=== PATIENT | female | born 1975 | race Caucasian/White ===

== ENCOUNTER 2018-08-29 15:24 | Observation (INO) ==
--- NOTE | 2018-08-29 15:42 | Emergency Department Note ---
Disposition Clinical Impression: Dehydration Diarrhea Qualifiers: Diarrhea type: unspecified type Qualified Code(s): R19.7 - Diarrhea, unspecified Vomiting Qualifiers: Vomiting type: unspecified Vomiting Intractability: intractable Nausea presence: with nausea Qualified Code(s): R11.2 - Nausea with vomiting, unspecified Disposition: Admitted As Inpatient Condition: Good Referrals: NONE,PCP [Primary Care Provider] - Forms: ED Satisfaction Letter, Work/School Release Time of Disposition: 20:38 General Adult HPI - General Chief complaint: ED General Medical Stated complaint: ABD Pain,Vomiting Time Seen by Provider: 08/29/18 15:29 Source: patient, family Limitations: no limitations Nursing Notes Reviewed: Yes Vital Signs Reviewed: Yes - History of Present Illness HPI Narrative: 43-year-old female presents emergency department with right lower quadrant abdominal pain, diarrhea, nausea, vomiting for the last day and a half. Patient states she has never felt like this before. Patient states he cannot keep anything down. She denies any blood in her stool. Patient denies any dysuria, urinary frequency, urgency. Patient does report subjective fevers. Denies any flank pain. Pain Scale: 8 - Related Data Previous Rx's Medication Instructions Recorded HYDROcodone/Acet 5/325 mg [[place] 1 tab PO Q6H PRN #3 tab 11/09/17 5-325 mg] Ondansetron ODT [Zofran ODT] 4 mg SL Q6HR PRN #15 tab.rapdis 11/09/17 Allergies Allergy/AdvReac Type Severity Reaction Status Date / Time Penicillins Allergy Hives Verified 11/08/17 22:35 morphine AdvReac Vomiting Verified 11/08/17 22:35 Opioids AdvReac See Uncoded 08/29/18 15:29 Comments All systems ED: reviewed and negative except as stated. Review of Systems: As Per HPI Constitutional: Reports: fever Cardiovascular: Denies: chest pain Respiratory: Denies: dyspnea Gastrointestinal: Reports: abdominal pain, nausea, vomiting, diarrhea Genitourinary: Denies: urgency, dysuria, frequency Musculoskeletal: Denies: back pain Neurological: Denies: headache Past Medical History - Past Medical History Medical history: Reports: no medical history Psychiatric history: Reports: no psych history - Social History Smoking Status: Current some day smoker Smokeless Tobacco Status: No Alcohol use: Reports: none Drug use: Reports: none Physical Exam - General Limitations: no limitations General appearance: alert, other (Appears very uncomfortable) - Head Head exam: normocephalic - Eye Eye exam: Present: EOMI - ENT ENT exam: mucous membranes moist - Neck Neck exam: Present: trachea midline - Chest Chest inspection: Present: symmetric chest wall rise - Respiratory Respiratory exam: Present: normal lung sounds bilaterally. Absent: respiratory distress, accessory muscle use - Cardiovascular Cardiovascular exam: Present: tachycardia - Abdominal Exam Abdominal exam: Present: soft, Non-Tender. Absent: distention, guarding, rebound, rigidity - Extremities Exam Extremities exam: Present: normal capillary refill - Back Exam Back exam: Present: full ROM. Absent: CVA tenderness (R), CVA tenderness (L) - Neurological Exam Neurological exam: Present: alert, oriented X3, CN II-XII intact - Psychiatric Psychiatric exam: Present: normal affect, normal mood - Skin Skin exam: Present: warm, dry, intact, normal color Course Vital Signs Temperature 99.8 F H 08/29/18 15:27 Pulse Rate 125 08/29/18 15:27 Respiratory Rate 18 08/29/18 15:27 Blood Pressure 110/73 08/29/18 15:27 O2 Sat by Pulse Oximetry 93 08/29/18 15:27 Temperature 99.8 F H 08/29/18 15:40 Pulse Rate 97 08/29/18 19:43 Respiratory Rate 16 08/29/18 19:43 Blood Pressure 89/50 08/29/18 19:43 O2 Sat by Pulse Oximetry 98 08/29/18 19:43 Oxygen Delivery Oxygen Delivery Room Air Medical Decision Making - [facility] Narrative Medical decision making narrative: 43-year-old female presents emergency department with concern for nausea, vomiting, abdominal pain. Patient was initially tachycardic. Blood pressures. We administered 2 L of fluid. She was also tachycardic. Patient was given multiple doses of pain medication as well as nausea medication. We obtained a CT scan of abdomen and pelvis which revealed fluid-filled distal colon c onsistent with her current diarrheal illness but no intra-abdominal abnormality that will be acutely surgical per radiology. Was obtained chest x-ray which revealed no acute process. Due to concern for the possibility of ovarian torsion, we obtained a transvaginal ultrasound. There was concern for possibility of endometrial polyp versus submucosal fibroid. Doppler was normal. Patient's labs were within normal limits. Urinalysis not reveal any evidence of infection. We will obtain a GI panel. Patient was not able to tolerate oral intake and she will stay in the hospital overnight. At this time, due to patient not able to tolerate oral intake, her dehydration, and her tachycardia, we will admit patient. Dr. Oliva agreed to accept the patient for admission. He requested I start la ctated Ringer's. Chest X-Ray 08/29/18 15:44 IMPRESSION: No acute process. D/ / Hai Ortega MD / Hai Ortega MD Interpreting Provider: Hai Ortega MD Abdomen/Pelvis CT 08/29/18 15:50 IMPRESSION: Fluid-filled distal colon consistent with given history of diarrheal illness. Otherwise, no acute intra-abdominal abnormality. D/ / Perez Wilson MD / Perez Wilson MD Interpreting Provider: Perez Wilson MD Abdomen/Pelvis/Transvag US 08/29/18 17:56 IMPRESSION: 1. In the lower uterine segment, there is echogenic mass with internal vascularity measuring 1.5 x 1.3 x 0.9 cm. This could represent endometrial polyp versus submucosal fibroid. Nonemergent gynecology consultation recommended. 2. Unremarkable sonographic appearance and Doppler evaluation of the ovaries. D/ / Berry Parker MD / Berry Parker MD Interpreting Provider: Berry Parker MD Vital Signs Temperature 99.8 F H 08/29/18 15:27 Pulse Rate 125 08/29/18 15:27 Respiratory Rate 18 08/29/18 15:27 Blood Pressure 110/73 08/29/18 15:27 O2 Sat by Pulse Oximetry 93 08/29/18 15:27 Temperature 99.8 F H 08/29/18 15:40 Pulse Rate 97 08/29/18 19:43 Respiratory Rate 16 08/29/18 19:43 Blood Pressure 89/50 08/29/18 19:43 O2 Sat by Pulse Oximetry 98 08/29/18 19:43 Oxygen Delivery Oxygen Delivery Room Air - Lab Data Result diagrams: 08/29/18 15:43 08/29/18 15:43 Lab Results 08/29/18 08/29/18 08/29/18 Range/Units 15:43 15:43 15:43 WBC 8.1 (4.3-11.1) K/mcL RBC 4.37 (3.82-4.97) M/mcL Hgb 13.6 (11.5-15.4) g/dL Hct 39.9 (35.3-44.9) % MCV 91.3 (83.0-100.0) fL MCH 31.1 (28.0-33.3) pg MCHC 34.1 (31.6-35.5) g/dL RDW 12.1 (11.5-14.5) % Plt Count 207 (140-400) K/mcL MPV 10.1 (9.4-12.4) fL Immature Gran % 0.4 (0-4) % Seg Neutrophils % 86.5 % Lymphocytes % 5.8 % Monocytes % 4.0 % Eosinophils % 2.9 % Basophils % 0.4 % Neutrophils # 7.0 (1.6-8.9) K/mcL Lymphocytes # 0.5 L (0.6-4.6) K/mcL Monocytes # 0.3 (0.0-1.3) K/mcL Eosinophils # 0.2 (0.0-0.6) K/mcL Basophils # 0.0 (0.0-0.2) K/mcL Nucleated RBCs/100 WBC 0.2 H (0) /100 WBC Sodium 136 (136-145) mEq/L Potassium 4.0 (3.5-5.1) mEq/L Chloride 104 (98-107) mEq/L Carbon Dioxide 21 L (23-29) mEq/L BUN 10 (6-20) mg/dL Creatinine 0.76 (0.60-1.20) mg/dL Est GFR ( Amer) > 60 (> 60) Est GFR (Non-Af Amer) > 60 (> 60) BUN/Creatinine Ratio 13 (6-26) Glucose 126 H (70-105) mg/dL Calculated Osmolality 283 (280-300) Lactic Acid (0.5-2.2) mmol/L Calcium 9.1 (8.6-10.3) mg/dL Total Bilirubin 0.7 (0.3-1.0) mg/dL AST 16 (13-39) Units/L ALT 17 (7-52) Units/L Alkaline Phosphatase 76 (34-104) Units/L Serum Total Protein 6.6 (6.4-8.9) g/dL Albumin 4.0 (3.5-5.7) g/dL Globulin 2.6 (2.4-3.5) g/dL Albumin/Globulin Ratio 1.5 (1.1-2.2) Lipase 7 L (11-82) Units/L Urine Color (Yellow) Urine Clarity (Clear) Urine pH (5.0-8.0) pH Units Ur Specific [place] (1.010-1.025) Urine Protein (Neg-Trace) mg/dL Urine Glucose (UA) (Normal) mg/dL Urine Ketones (Negative) mg/dL Urine Blood (Negative) Urine Nitrite (Negative) Urine Bilirubin (Negative) Urine Urobilinogen (Normal) mg/dL Ur Leukocyte Esterase (Negative) Urine Microscopic RBC (0-3) per hpf Urine Microscopic WBC (0-3) per hpf Ur Squamous Epith Cells (None-Few) per lpf Urine Bacteria (None-Few) per hpf Hyaline Casts (None-Few) per lpf Ur Culture Indicated? (NO) Urine Test (Negative) 08/29/18 08/29/18 08/29/18 Range/Units 16:24 16:24 16:25 WBC (4.3-11.1) K/mcL RBC (3.82-4.97) M/mcL Hgb (11.5-15.4) g/dL Hct (35.3-44.9) % MCV (83.0-100.0) fL MCH (28.0-33.3) pg MCHC (31.6-35.5) g/dL RDW (11.5-14.5) % Plt Count (140-400) K/mcL MPV (9.4-12.4) fL Immature Gran % (0-4) % Seg Neutrophils % % Lymphocytes % % Monocytes % % Eosinophils % % Basophils % % Neutrophils # (1.6-8.9) K/mcL Lymphocytes # (0.6-4.6) K/mcL Monocytes # (0.0-1.3) K/mcL Eosinophils # (0.0-0.6) K/mcL Basophils # (0.0-0.2) K/mcL Nucleated RBCs/100 WBC (0) /100 WBC Sodium (136-145) mEq/L Potassium (3.5-5.1) mEq/L Chloride (98-107) mEq/L Carbon Dioxide (23-29) mEq/L BUN (6-20) mg/dL Creatinine (0.60-1.20) mg/dL Est GFR ( Amer) (> 60) Est GFR (Non-Af Amer) (> 60) BUN/Creatinine Ratio (6-26) Glucose (70-105) mg/dL Calculated Osmolality (280-300) Lactic Acid 1.3 (0.5-2.2) mmol/L Calcium (8.6-10.3) mg/dL Total Bilirubin (0.3-1.0) mg/dL AST (13-39) Units/L ALT (7-52) Units/L Alkaline Phosphatase (34-104) Units/L Serum Total Protein (6.4-8.9) g/dL Albumin (3.5-5.7) g/dL Globulin (2.4-3.5) g/dL Albumin/Globulin Ratio (1.1-2.2) Lipase (11-82) Units/L Urine Color Dark Yellow (Yellow) Urine Clarity Cloudy A (Clear) Urine pH 6.0 (5.0-8.0) pH Units Ur Specific [place] 1.024 (1.010-1.025) Urine Protein Trace (Neg-Trace) mg/dL Urine Glucose (UA) Normal (Normal) mg/dL Urine Ketones Trace H (Negative) mg/dL Urine Blood Negative (Negative) Urine Nitrite Negative (Negative) Urine Bilirubin Small H (Negative) Urine Urobilinogen Normal (Normal) mg/dL Ur Leukocyte Esterase Small H (Negative) Urine Microscopic RBC 0-3 (0-3) per hpf Urine Microscopic WBC 3-5 H (0-3) per hpf Ur Squamous Epith Cells Many H (None-Few) per lpf Urine Bacteria Moderate H (None-Few) per hpf Hyaline Casts None Seen (None-Few) per lpf Ur Culture Indicated? NO. A (NO) Urine Test Negative (Negative) - EKG Data EKG #1 EKG attestation: Yes I reviewed and interpreted this EKG. EKG results narrative: 15:40 Heart rate 114 bpm, TX interval 133 ms, QRS duration 88 ms, QT 306 ms, QTC 422 m s, sinus tachycardia. Right axis deviation. No evidence of any ischemic ST changes on this EKG. Attestation Statement - Attestation Attestation: I, Julio Tapia DO, examined this patient [id number] and my medical decis ion-making was reviewed with Dr. James Baumann, Resident Physician. I agree with the documented findings, disposition and treatment plan as described except to the extent set forth below. Please see my progress notes for details.
[2018-08-29] MEDS ORDERED: 0.9 % Sodium Chloride 1,000 ML IVC ONE ×2 (15:50→17:56)
[2018-08-29] MEDS ORDERED: *HR* FentaNYL (PF) 100 MCG/2 ML VIAL IVP STA (15:51)
[2018-08-29] MEDS ORDERED: Ketorolac 15 MG/ML VIAL IVP ONE (15:52)
[2018-08-29] MEDS ORDERED: Ondansetron 4 MG/2 ML VIAL IVP ONE (15:52)
[2018-08-29 15:54] LABS: Basophils % 0.4 %; Eosinophils # 0.2 K/mcL (0.0-0.6); Eosinophils % 2.9 %; Hematocrit 39.9 % (35.3-44.9); Hemoglobin 13.6 g/dL (11.5-15.4); Immature Granulocytes % 0.4 % (0-4); Lymphocytes # 0.5 K/mcL (0.6-4.6); Lymphocytes % 5.8 %; Mean Corpuscular HGB Conc 34.1 g/dL (31.6-35.5); Mean Corpuscular Hemoglobin 31.1 pg (28.0-33.3); Mean Corpuscular Volume 91.3 fL (83.0-100.0); Mean Platelet Volume 10.1 fL (9.4-12.4); Monocytes # 0.3 K/mcL (0.0-1.3); Nucleated Red Blood Cells 0.2 /100 WBC (0); Platelet Count 207 K/mcL (140-400); Red Blood Count 4.37 M/mcL (3.82-4.97); Red Cell Distribution Width 12.1 % (11.5-14.5); Segmented Neutrophils % 86.5 %
[2018-08-29 16:14] LABS: Alanine Aminotransferase 17 Units/L (7-52); Albumin/Globulin Ratio 1.5 (1.1-2.2); Alkaline Phosphatase 76 Units/L (34-104); Aspartate Amino Transferase 16 Units/L (13-39); BUN/Creatinine Ratio 13 (6-26); Bilirubin,Total 0.7 mg/dL (0.3-1.0); Blood Urea Nitrogen 10 mg/dL (6-20); Calcium 9.1 mg/dL (8.6-10.3); Carbon Dioxide 21 mEq/L (23-29); Chloride 104 mEq/L (98-107); Globulin 2.6 g/dL (2.4-3.5); Glucose 126 mg/dL (70-105); Osmolality,Calculated 283 (280-300); Sodium 136 mEq/L (136-145); Total Protein 6.6 g/dL (6.4-8.9); eGFR For Non-African Americans > 60 (> 60)
[2018-08-29 16:38] LABS: Bilirubin,Urine Small (Negative); Blood,Urine Negative (Negative); Clarity,Urine Cloudy (Clear); Color,Urine Dark Yellow (Yellow); Glucose,Urine (UA) Normal (Normal); Ketones,Urine Trace mg/dL (Negative); Leukocyte Esterase,Urine Small (Negative); Nitrite,Urine Negative (Negative); Protein,Urine Trace mg/dL (Neg-Trace); Specific Gravity,Urine 1.024 (1.010-1.025); Urobilinogen,Urine Normal (Normal)
[2018-08-29 16:39] LABS: Bacteria,Urine Moderate per hpf (None-Few); Hyaline Casts,Urine None Seen per lpf (None-Few); Squamous Epithelial Cell,Urine Many per lpf (None-Few)
[2018-08-29 16:45] LABS: RBC,Urine 0-3 per hpf (0-3)
--- NOTE | 2018-08-29 17:13 | Emergency Department Note ---
Disposition Clinical Impression: Dehydration Diarrhea Qualifiers: Diarrhea type: unspecified type Qualified Code(s): R19.7 - Diarrhea, unspecified Vomiting Qualifiers: Vomiting type: unspecified Vomiting Intractability: intractable Nausea presence: with nausea Qualified Code(s): R11.2 - Nausea with vomiting, unspecified Disposition: Admitted As Inpatient Condition: Good Referrals: NONE,PCP [Primary Care Provider] - Forms: ED Satisfaction Letter, Work/School Release Time of Disposition: 20:37 General Adult HPI - General Chief complaint: ED General Medical Stated complaint: ABD Pain,Vomiting Time Seen by Provider: 08/29/18 15:29 Source: patient, family Limitations: no limitations - History of Present Illness Pain Scale: 8 - Related Data Previous Rx's Medication Instructions Recorded HYDROcodone/Acet 5/325 mg [[place] 1 tab PO Q6H PRN #3 tab 11/09/17 5-325 mg] Ondansetron ODT [Zofran ODT] 4 mg SL Q6HR PRN #15 tab.rapdis 11/09/17 Allergies Allergy/AdvReac Type Severity Reaction Status Date / Time Penicillins Allergy Hives Verified 11/08/17 22:35 morphine AdvReac Vomiting Verified 11/08/17 22:35 Opioids AdvReac See Uncoded 08/29/18 15:29 Comments Past Medical History - Past Medical History Medical history: Reports: no medical history Psychiatric history: Reports: no psych history - Social History Smoking Status: Current some day smoker Smokeless Tobacco Status: No Alcohol use: Reports: none Drug use: Reports: none Physical Exam - General Limitations: no limitations General appearance: alert, in no apparent distress Course Vital Signs Temperature 99.8 F H 08/29/18 15:27 Pulse Rate 125 08/29/18 15:27 Respiratory Rate 18 08/29/18 15:27 Blood Pressure 110/73 08/29/18 15:27 O2 Sat by Pulse Oximetry 93 08/29/18 15:27 Temperature 99.8 F H 08/29/18 15:40 Pulse Rate 97 08/29/18 19:43 Respiratory Rate 16 08/29/18 19:43 Blood Pressure 89/50 08/29/18 19:43 O2 Sat by Pulse Oximetry 98 08/29/18 19:43 Oxygen Delivery Oxygen Delivery Room Air Medical Decision Making - Lab Data Result diagrams: 08/29/18 15:43 08/29/18 15:43 Lab Results 08/29/18 08/29/18 08/29/18 Range/Units 15:43 15:43 15:43 WBC 8.1 (4.3-11.1) K/mcL RBC 4.37 (3.82-4.97) M/mcL Hgb 13.6 (11.5-15.4) g/dL Hct 39.9 (35.3-44.9) % MCV 91.3 (83.0-100.0) fL MCH 31.1 (28.0-33.3) pg MCHC 34.1 (31.6-35.5) g/dL RDW 12.1 (11.5-14.5) % Plt Count 207 (140-400) K/mcL MPV 10.1 (9.4-12.4) fL Immature Gran % 0.4 (0-4) % Seg Neutrophils % 86.5 % Lymphocytes % 5.8 % Monocytes % 4.0 % Eosinophils % 2.9 % Basophils % 0.4 % Neutrophils # 7.0 (1.6-8.9) K/mcL Lymphocytes # 0.5 L (0.6-4.6) K/mcL Monocytes # 0.3 (0.0-1.3) K/mcL Eosinophils # 0.2 (0.0-0.6) K/mcL Basophils # 0.0 (0.0-0.2) K/mcL Nucleated RBCs/100 WBC 0.2 H (0) /100 WBC Sodium 136 (136-145) mEq/L Potassium 4.0 (3.5-5.1) mEq/L Chloride 104 (98-107) mEq/L Carbon Dioxide 21 L (23-29) mEq/L BUN 10 (6-20) mg/dL Creatinine 0.76 (0.60-1.20) mg/dL Est GFR ( Amer) > 60 (> 60) Est GFR (Non-Af Amer) > 60 (> 60) BUN/Creatinine Ratio 13 (6-26) Glucose 126 H (70-105) mg/dL Calculated Osmolality 283 (280-300) Lactic Acid (0.5-2.2) mmol/L Calcium 9.1 (8.6-10.3) mg/dL Total Bilirubin 0.7 (0.3-1.0) mg/dL AST 16 (13-39) Units/L ALT 17 (7-52) Units/L Alkaline Phosphatase 76 (34-104) Units/L Serum Total Protein 6.6 (6.4-8.9) g/dL Albumin 4.0 (3.5-5.7) g/dL Globulin 2.6 (2.4-3.5) g/dL Albumin/Globulin Ratio 1.5 (1.1-2.2) Lipase 7 L (11-82) Units/L Urine Color (Yellow) Urine Clarity (Clear) Urine pH (5.0-8.0) pH Units Ur Specific [place] (1.010-1.025) Urine Protein (Neg-Trace) mg/dL Urine Glucose (UA) (Normal) mg/dL Urine Ketones (Negative) mg/dL Urine Blood (Negative) Urine Nitrite (Negative) Urine Bilirubin (Negative) Urine Urobilinogen (Normal) mg/dL Ur Leukocyte Esterase (Negative) Urine Microscopic RBC (0-3) per hpf Urine Microscopic WBC (0-3) per hpf Ur Squamous Epith Cells (None-Few) per lpf Urine Bacteria (None-Few) per hpf Hyaline Casts (None-Few) per lpf Ur Culture Indicated? (NO) Urine Test (Negative) 08/29/18 08/29/18 08/29/18 Range/Units 16:24 16:24 16:25 WBC (4.3-11.1) K/mcL RBC (3.82-4.97) M/mcL Hgb (11.5-15.4) g/dL Hct (35.3-44.9) % MCV (83.0-100.0) fL MCH (28.0-33.3) pg MCHC (31.6-35.5) g/dL RDW (11.5-14.5) % Plt Count (140-400) K/mcL MPV (9.4-12.4) fL Immature Gran % (0-4) % Seg Neutrophils % % Lymphocytes % % Monocytes % % Eosinophils % % Basophils % % Neutrophils # (1.6-8.9) K/mcL Lymphocytes # (0.6-4.6) K/mcL Monocytes # (0.0-1.3) K/mcL Eosinophils # (0.0-0.6) K/mcL Basophils # (0.0-0.2) K/mcL Nucleated RBCs/100 WBC (0) /100 WBC Sodium (136-145) mEq/L Potassium (3.5-5.1) mEq/L Chloride (98-107) mEq/L Carbon Dioxide (23-29) mEq/L BUN (6-20) mg/dL Creatinine (0.60-1.20) mg/dL Est GFR ( Amer) (> 60) Est GFR (Non-Af Amer) (> 60) BUN/Creatinine Ratio (6-26) Glucose (70-105) mg/dL Calculated Osmolality (280-300) Lactic Acid 1.3 (0.5-2.2) mmol/L Calcium (8.6-10.3) mg/dL Total Bilirubin (0.3-1.0) mg/dL AST (13-39) Units/L ALT (7-52) Units/L Alkaline Phosphatase (34-104) Units/L Serum Total Protein (6.4-8.9) g/dL Albumin (3.5-5.7) g/dL Globulin (2.4-3.5) g/dL Albumin/Globulin Ratio (1.1-2.2) Lipase (11-82) Units/L Urine Color Dark Yellow (Yellow) Urine Clarity Cloudy A (Clear) Urine pH 6.0 (5.0-8.0) pH Units Ur Specific [place] 1.024 (1.010-1.025) Urine Protein Trace (Neg-Trace) mg/dL Urine Glucose (UA) Normal (Normal) mg/dL Urine Ketones Trace H (Negative) mg/dL Urine Blood Negative (Negative) Urine Nitrite Negative (Negative) Urine Bilirubin Small H (Negative) Urine Urobilinogen Normal (Normal) mg/dL Ur Leukocyte Esterase Small H (Negative) Urine Microscopic RBC 0-3 (0-3) per hpf Urine Microscopic WBC 3-5 H (0-3) per hpf Ur Squamous Epith Cells Many H (None-Few) per lpf Urine Bacteria Moderate H (None-Few) per hpf Hyaline Casts None Seen (None-Few) per lpf Ur Culture Indicated? NO. A (NO) Urine Test Negative (Negative) Attestation Statement - Attestation Attestation: I, Julio Willie DO, examined this patient [id number] and my medical decision-making was reviewed with Dr. James Baumann, Resident Physician. I agree with the documented findings, disposition and treatment plan as described except to the extent set forth below. Please see my progress notes for details. 43-year-old female presents to the emergency room with complaint of several days worth of generalized malaise and myalgias. She has had intermittent fevers and chills at home. She has not been able to eat or drink anything for approximately 24 hours. Patient has no other new medical issues. Denies any new medications. Denies any falls trauma or injury. She has had several sick contacts. Otherwise everyone else around has been healthy. She has not traveled outside the country. She has not had any meals the places that were concerning for poor hygiene. Patient denies chest pain, shortness of breath, headache, vision changes. She has nausea vomiting but no diarrhea. She has intermittent fevers and chills. Lungs are clear to auscultation heart is regular but tachycardic. Abdomen is soft but she does have significant tenderness in the right lower quadrant. She has mild suprapubic discomfort. There is no point tenderness or guarding in the adnexa. She does have a history of ovarian cysts but the symptoms here today of been present for 24-48 hours. EKG CBC chemistry along with urinalysis. CT imaging of the abdomen will be ordered with noncontrasted evaluation with concern for appendicitis. If there is any acute signs of large ovarian cyst ultrasound of the abdomen will be compl eted as well. She does not clinically meet any of the criteria for acute ovarian torsion. She is sexually active but monogamous with her life. She does not have any concern for secondary to being homosexual. Fluids pain medication nausea medication as well as antipyretic will be given as needed. We will continue to monitor closely and symptomatically control is completed disposition is determined. Patient otherwise is stable at this time. See detailed documentation of the physical exam, medical intervention, medical decision-making and disposition in the resident physician's note. 2024 Patient's labs are otherwise unremarkable. 2 L of fluid were provided to the patient. Patient did respond to the fluid boluses but she has not been able to keep anything down by mouth. Attempts were made to get the patient to be discharged home with what appears to be a viral syndrome. The CT imaging of her abdomen as well as ultrasound of her pelvis do not show any acute etiology. Patient has what appears to be a viral syndrome causing all of her symptoms here today. She is concerned because she has not been able to eat or drink anything or have anything down without significant abdominal distress. At that point is determined that the patient will require admission. She will be provided with fluids maintenance symptomatic control as well as nausea medication as needed. Admission process to be established at this time. No other acute concerns or issues noted this point. Patient is otherwise clinically stable to time of admission. The hospitalist Dr. Singh reviewed the case and had no other recommendations or concerns at this time. Patient will be observed here in the emergency room until admission process is completed.
[2018-08-29] MEDS ORDERED: Ondansetron 4 MG/2 ML VIAL IVP STA (18:14)
[2018-08-29] MEDS ORDERED: *HR* Morphine Immed Rel 30 MG TABLET PO STA (18:14)
[2018-08-29] MEDS ORDERED: *HR* FentaNYL (PF) 100 MCG/2 ML VIAL IVP ONE (18:25)
[2018-08-29] MEDS ORDERED: Ondansetron 4 MG/2 ML VIAL IVP PRN (20:46)
[2018-08-29] MEDS ORDERED: Mag Hydrox/Al Hydrox/Simeth 30 ML UDC PO PRN (20:46)
[2018-08-29] MEDS ORDERED: Ketorolac 30 MG/ML VIAL IVP PRN (20:47)
[2018-08-29] MEDS: Ringers Solution, Lactated 1,000 ML IVC SCH (22:21)
--- NOTE | 2018-08-29 22:22 | Internal Med History&Physical ---
Date of Encounter: 08/29/18 Time of Encounter: 22:20 Internal Medicine - H&P: HPI Chief complaint: Diarrhea Admitted From: Home Plans for Post Hospital Care: Home History of present illness: Silvia Morales is a 43-year-old woman who denies any past medical history presenting to the emergency room with the complaint of abdominal pain and diarrhea that started at 2 AM overnight. This is equally accompanied by profuse nausea and vomiting. She describes the diarrhea as watery and brownish in color and denies noticing any blood or mucus. She says she has been unable to keep anything down due to the nausea and vomiting. She denies any associated dysuria and urinary frequency. She does report generalized malaise and subjective fevers, feeling generally unwell. She denies any remarkable acute ingestions from the night prior. In the emergency room she was somewhat tachycardic but afebrile and noted to be borderline hypotensive in spite of 2 L of fluid resuscitation. She received multiple doses of opiate analgesics to relieve her discomfort however it persisted. CT imaging of her abdomen was done due to the ongoing pain which was reviewed independently by me; findings of a fluid-filled distal colon consistent with diarrheal illness otherwise no acute intra- abdominal abnormality was detected. Of note, a pelvic ultrasound was done which only showed sign of a small fibroid lesion but otherwise was unremarkable. She is admitted for ongoing observation due to her continued generalized malaise and persisting hypotension in spite of fluid resuscitation. PMHx: As indicated above. SHx: Active Smoker, denies illicit drug use. FHx: Hypertension in father. Review of systems: All systems reviewed and negative except as listed above in the HPI. Past Med Surg Social Fam HX - Past Medical History Medical history: no medical history Psychiatric history: no psych history - Past Surgical History Additional surgical history: tubes tied - Social History Smoking Status: Current some day smoker Smokeless Tobacco Status: No Alcohol use: none Drug use: none Internal Medicine - H&P: Meds HYDROcodone/Acet 5/325 mg [[place] 5-325 mg] 1 tab PO Q6H PRN #3 tab 11/09/17 [Rx] Ondansetron ODT [Zofran ODT] 4 mg SL Q6HR PRN #15 tab.rapdis 11/09/17 [Rx] Allergy/AdvReac Type Severity Reaction Status Date / Time Penicillins Allergy Hives Verified 11/08/17 22:35 morphine AdvReac Vomiting Verified 11/08/17 22:35 Opioids AdvReac See Uncoded 08/29/18 15:29 Comments All Systems PM: A 10-system review of systems was performed and is negative for pertinent findings except as documented above in the HPI. - Constitutional Vitals: Temp Pulse Resp BP Pulse Ox 99.7 F H 95 16 89/59 97 08/29/18 22:07 08/29/18 22:07 08/29/18 22:07 08/29/18 22:07 08/29/18 22:07 Exam: Vitals: Reviewed General: Obese white female lying in bed with notable discomfort. Skin: Flushed skin but moist and supple. HEENT: Dry oral mucous membranes. No conjunctivae pallor. Neck: No lymphadenopathy. No JVD. No carotid bruits. No palpable thyroid. Chest: Normal thoracic expansion. Normal breath sounds. Clear to auscultation. Heart: Normal S1 & S2; rhythmic. No rubs or murmurs. Abdomen: Non-distended, soft and diffusely tender to palpation with no signs of peritoneal reaction. Extremities: No clubbing, cyanosis or edema. No calf tenderness. Normal distal pulses. Neurological: Awake, alert and oriented to person, place and time. No focal deficits. Psych: Affect appropriate. Internal Med - H&P Results - Labs CBC & Chem 7: 08/29/18 15:43 08/29/18 15:43 Labs: Short CBC 08/29/18 Range/Units 15:43 WBC 8.1 (4.3-11.1) K/mcL Hgb 13.6 (11.5-15.4) g/dL Hct 39.9 (35.3-44.9) % Plt Count 207 (140-400) K/mcL Neutrophils # 7.0 (1.6-8.9) K/mcL BMP 08/29/18 15:43 Sodium 136 Potassium 4.0 Chloride 104 Carbon Dioxide 21 L BUN 10 Creatinine 0.76 Glucose 126 H Calcium 9.1 Liver Function 08/29/18 Range/Units 15:43 Total Bilirubin 0.7 (0.3-1.0) mg/dL AST 16 (13-39) Units/L ALT 17 (7-52) Units/L Alkaline Phosphatase 76 (34-104) Units/L Albumin 4.0 (3.5-5.7) g/dL Urine 08/29/18 Range/Units 16:24 Urine Color Dark Yellow (Yellow) Urine Clarity Cloudy A (Clear) Urine pH 6.0 (5.0-8.0) pH Units Ur Specific [place] 1.024 (1.010-1.025) Urine Protein Trace (Neg-Trace) mg/dL Urine Glucose (UA) Normal (Normal) mg/dL - Impressions ITS Impressions Chest X-Ray 08/29/18 15:44 IMPRESSION: No acute process. D/ / Hai Ortega MD / Hai Ortega MD Interpreting Provider: Hai Ortega MD Abdomen/Pelvis CT 08/29/18 15:50 IMPRESSION: Fluid-filled distal colon consistent with given history of diarrheal illness. Otherwise, no acute intra-abdominal abnormality. D/ / Perez Wilson MD / Perez Wilson MD Interpreting Provider: Perez Wilson MD Abdomen/Pelvis/Transvag US 08/29/18 17:56 IMPRESSION: 1. In the lower uterine segment, there is echogenic mass with internal vascularity measuring 1.5 x 1.3 x 0.9 cm. This could represent endometrial polyp versus submucosal fibroid. Nonemergent gynecology consultation recommended. 2. Unremarkable sonographic appearance and Doppler evaluation of the ovaries. D/ / Berry Parker MD / Berry Parker MD Interpreting Provider: Berry Parker MD - Assessment and plan (1) Dehydration Current Visit: Yes Status: Acute Assessment and plan: Noted on clinical exam and evidence by state of hypotension with relative tachy cardia likely secondary to acute gastroenteritis. We shall provide antiemetics as needed, continue fluid resuscitation and monitor electrolytes. 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 No indication for antimicrobials at this time. We will avoid any antimotility agents for now and let it pass as it should be relatively self-limiting. GI stool panel was ordered in the ER and will be collected. Continuous IV fluid resuscitation and diet as tolerated. We will continue to monitor for alarm signs. (3) Tobacco dependence Current Visit: Yes Status: Acute Assessment and plan: Counseled accordingly and resources made available. (4) Obesity Current Visit: Yes Status: Acute Assessment and plan: She will benefit from soundscriber mechanic consultation. Educated on therapeutic lifestyle changes. Qualifiers: Obesity type: due to excess calories Obesity classification: adult class 3 (BMI >= 40) Body mass index: BMI 40.0-44.9 Qualified Code(s): E66.01 - Morbid (severe) obesity due to excess calories; Z68.41 - Body mass index (BMI) 40.0-44.9, adult (5) DVT prophylaxis Current Visit: Yes Status: Acute Assessment and plan: Subcutaneous heparin is indicated. - Time Spent With Patient Total time spent is greater than 50% in coordination of care (as documented) at patient's floor/unit and/or counseling patient: Greater than 35 minutes
[2018-08-30] MEDS ORDERED: *HR* Heparin 5,000 UNIT/ML VIAL SQ SCH (06:00)
[2018-08-30 06:15] LABS: Basophils % 0.5 %; Eosinophils # 0.3 K/mcL (0.0-0.6); Eosinophils % 7.4 %; Hematocrit 32.4 % (35.3-44.9); Immature Granulocytes % 0.3 % (0-4); Lymphocytes # 0.8 K/mcL (0.6-4.6); Lymphocytes % 21.2 %; Mean Corpuscular HGB Conc 32.7 g/dL (31.6-35.5); Mean Corpuscular Hemoglobin 30.6 pg (28.0-33.3); Mean Corpuscular Volume 93.6 fL (83.0-100.0); Mean Platelet Volume 10.2 fL (9.4-12.4); Monocytes # 0.2 K/mcL (0.0-1.3); Monocytes % 5.3 %; Neutrophils # 2.5 K/mcL (1.6-8.9); Platelet Count 160 K/mcL (140-400); Red Blood Count 3.46 M/mcL (3.82-4.97); Red Cell Distribution Width 12.3 % (11.5-14.5); Segmented Neutrophils % 65.3 %
[2018-08-30 06:29] LABS: Hemoglobin 10.6 g/dL (11.5-15.4)
[2018-08-30 06:36] LABS: BUN/Creatinine Ratio 12 (6-26); Blood Urea Nitrogen 8 mg/dL (6-20); Calcium 7.6 mg/dL (8.6-10.3); Carbon Dioxide 24 mEq/L (23-29); Chloride 106 mEq/L (98-107); Glucose 123 mg/dL (70-105); Magnesium 1.4 mg/dL (1.6-2.6); Osmolality,Calculated 284 (280-300); Phosphorous 2.4 mg/dL (2.7-4.5); Potassium 3.5 mEq/L (3.5-5.1); Sodium 137 mEq/L (136-145); eGFR For Non-African Americans > 60 (> 60)
[2018-08-30] MEDS: Ringers Solution, Lactated 1,000 ML IVC SCH (07:41)
[2018-08-30] MEDS ORDERED: Acetaminophen 325 MG TABLET PO PRN (08:17)
[2018-08-30 09:00] LABS: Adenovirus F 40/41 PCR Not detected (Not detect); Astrovirus PCR Not detected (Not detect); C.difficile Toxin A/B by PCR Not detected (Not detect); Campylobacter by PCR Not detected (Not detect); Cryptosporidium by PCR Not detected (Not detect); Cyclospora cayetanensis PCR Not detected (Not detect); E. coli O157 by PCR Not detected (Not detect); Entamoeba histolytica PCR Not detected (Not detect); Enteroaggregative E.coli(EAEC) Not detected (Not detect); Enteropathogenic E.coli(EPEC) Not detected (Not detect); Enterotoxigenic E.coli (ETEC) Not detected (Not detect); Giardia lamblia PCR Not detected (Not detect); Norovirus GI/GII PCR DETECTED (Not detect); Plesiomonas shigelloides PCR Not detected (Not detect); Rotavirus A PCR Not detected (Not detect); Salmonella PCR Not detected (Not detect); Sapovirus PCR Not detected (Not detect); Shig/EnteroinvasiveE coli EIEC Not detected (Not detect); Shigalike tox-prod E coli STEC Not detected (Not detect); Vibrio PCR Not detected (Not detect); Vibrio cholerae PCR Not detected (Not detect); Yersinia enterocolitica PCR Not detected (Not detect)
[2018-08-30 11:26] VITALS: BP 120/72
--- NOTE | 2018-08-30 14:07 | Discharge Summary ---
- NOTES TO OUTPATIENT PROVIDER Notes to Outpatient Provider: PCP in 5 to 7 days Orders not resulted at time of discharge: Pending orders 08/30/18 08:59 Culture,Blood [] Stat Date of Encounter: 08/30/18 Time of Encounter: 14:03 - Discharge Diagnosis (1) Norovirus Priority: Primary Status: Acute Assessment and Plan: Gastroenteritis due to norovirus. 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 Explained to them that pt needs to practise proper hygiene and hand washing. Pt states they have a 7 week old at home, their nieces child. I explained to her that she should avoid handling the 7 week old as much as possible. Norovirus is contagious. She is being given information for Norovirus prior to discharge. Tylenol prn for fevers. (2) Gastroenteritis Priority: Primary Status: Acute Assessment and Plan: Due to norovirus. Given IVF and encouraged to increase PO intake. (3) Dehydration Priority: Primary Status: Acute Assessment and Plan: Noted on clinical exam and evidence by state of hypotension with relative tachycardia likely secondary to acute gastroenteritis. that has improved with fluid resuscitation. (4) Obesity Priority: Secondary Status: Acute Assessment and Plan: She will benefit from trim mounter consultation. Educated on therapeutic lifestyle changes. Qualifiers: Obesity type: due to excess calories Obesity classification: adult class 3 (BMI >= 40) Body mass index: BMI 40.0-44.9 Qualified Code(s): E66.01 - Morbid (severe) obesity due to excess calories; Z68.41 - Body mass index (BMI) 40.0-44.9, adult (5) Hypomagnesemia Priority: Secondary Status: Acute Assessment and Plan: magnesium replaced. (6) Abnormal urine Priority: Secondary Status: Acute Assessment and Plan: UA with many squamous cells. Likely contaminant. Not sent for cultures due to # of sq epi. Pt states she is asymptomatic. (7) Tobacco dependence Priority: Secondary Status: Acute Assessment and Plan: Counseled accordingly and resources made available. 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 This is equally accompanied by profuse nausea and vomiting. She describes the diarrhea as watery and brownish in color and denies noticing any blood or mucus. She says she has been unable to keep anything down due to the nausea and vomiting. She denies any associated dysuria and urinary frequency. She does report generalized malaise and subjective fevers, feeling generally unwell. She denies any remarkable acute ingestions from the night prior. In the emergency room she was somewhat tachycardic but afebrile and noted to be borderline hypotensive in spite of 2 L of fluid resuscitation. She received multiple doses of opiate analgesics to relieve her discomfort however it persisted. CT imaging of her abdomen was done due to the ongoing pain which was reviewed independently by me; findings of a fluid-filled distal colon consistent with diarrheal illness otherwise no acute intra-abdominal abnormality was detected. Of note, a pelvic ultrasound was done which only showed sign of a small fibroid lesion but otherwise was unremarkable. She is admitted for ongoing observation due to her continued generalized malaise and persisting hypotension in spite of fluid resuscitation. Discharge discussed with: patient - Time Spent with Patient Total time spent providing and/or coordinating discharge services: Greater than 30 minutes - Discharge Medications Home Medications: No Known Home Drugs 08/30/18 [History] Allergies/Adverse Reactions: Allergy/AdvReac Type Severity Reaction Status Date / Time Penicillins Allergy Hives Verified 08/30/18 08:18 morphine AdvReac Vomiting Verified 08/30/18 08:18 Opioids AdvReac Vomiting Uncoded 08/30/18 08:18 Date of admission: 08/29/18 20:39 Primary care physician: PCP NONE Discharging clinician: Radha Flores Anticipated date of discharge: 08/30/18 - Constitutional Vitals: Temp Pulse Resp BP Pulse Ox 98.0 F 99 16 120/72 98 08/30/18 11:19 08/30/18 11:19 08/30/18 11:19 08/30/18 11:19 08/30/18 11:19 Exam: . - Head Head exam: Present: atraumatic, normocephalic - Eye Eye exam: Present: PERRL, conjuntiva pink, sclera anicteric Pupils: Present: PERRL - Neck Neck exam general surgery: Present: supple, trachea midline. Absent: lymphadenopathy - Respiratory Respiratory exam: Present: CTAB. Absent: accessory muscle use, rales, rhonchi, wheezes - Cardiovascular Cardiovascular exam: Present: RRR, +S1, +S2. Absent: diastolic murmur, gallop, rubs, systolic murmur - GI/Abdominal GI/Abdominal exam: Present: normal bowel sounds, soft, no peritoneal signs. Absent: distended, tenderness - Extremities Exam Extremities exam: Present: warm, radial pulses palpable and symmetrical. Absent: calf tenderness, cyanotic, pedal edema - Neurological Exam Neurological exam: Present: CN II-XII intact, oriented X3, no focal deficits. Absent: pronater drift, facial droop, speech deficit - Skin Skin exam: Present: dry, intact - Patient Status Disposition: Home, Self-Care Condition: Good Overall status at discharge: patient is back to baseline - Discharge Instructions Instructions: Gastroenteritis (GEN), Hand Hygiene (GEN) Follow Up With: Albin Scott DO [Resident] - 09/04/18 10:00 am (Please follow up as schedule....) - Diet and Activity Activity: increase activity as tolerated
--- NOTE | 2018-08-30 15:55 | Electrocardiograph Report ---
[address] [address] Test Date: 2018-08-29 Pat Name: Silvia Morales Department: EXAM2 Room: 2A37 Gender: F [employer] Aircrewman: : 1975 Requested By: James Baumann Order Number: [id number] Reading MD: Cruz Solis Measurements Intervals [place] Rate: 114 P: 79 VA: 133 QRS: 100 QRSD: 88 T: 29 QT: 306 QTc: 422 Interpretive Statements Sinus tachycardia Low voltage, precordial leads Electronically Signed On 08-30-2018 15:53:35 EST by Cruz Solis
== END 2018-08-30 14:40 | disposition home or self-care (01) ==
LOC: EMEROOARM 15:24 → 2ANU 15:24
PROVIDERS: ADMIT Internal Medicine; ATTEND Internal Medicine